=== PATIENT | male | born 1975 | race Caucasian/White ===

== ENCOUNTER 2018-11-03 11:18 | Emergency (ER) | payer BC ==
[2018-11-03] MEDS ORDERED: Sodium Chloride 0.9% 1000 ML 1,000 ML IV STA (11:50)
[2018-11-03] MEDS ORDERED: Ativan 2 MG/1 ML VIAL IV ONE (11:50)
--- NOTE | 2018-11-03 12:14 | XRAY ---
Indication: Dizziness. Withdrawal from medication. Comparison: April 16, 2014. Portable chest again demonstrates normal heart, lungs, and bony thorax.
[2018-11-03 12:21] LABS: BASOPHIL % 0.2 % (0.0-0.4); Basophil (Absolute #) 0.03 (0-0.4); Eosinophil % 0.3 % (0.00-5.0); Eosinophil (Absolute #) 0.04 (0-0.5); Granulocyte Absolute (ANC) 11.07 (1.4-6.9); Granulocytes % 83.7 % (36.0-66.0); Hematocrit 42.6 % (42-50); Hemoglobin 14.6 gm/dl (12.5-18.0); Lymphocyte (Absolute #) 1.46 (1.0-4.6); Mean Cell Volume 83.2 fl (78-100); Mean Corpuscular Hemoglobin 28.5 pg (26-32); Mean Corpuscular Hgb Concent. 34.3 g/dl (32-36); Mean Platelet Volume 10.2 fl (6-9.5); Monocyte (Absolute #) 0.64 (0.0-1.3); Monocytes % 4.8 % (0.0-12.0); Platelet Count 275 K/mm3 (150-450); Red Blood Count 5.12 M/mm3 (4.1-5.6); Red Cell Distribution Width 14.3 % (11.5-14.0); White Blood Count 13.2 K/mm3 (4.0-10.5)
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
[2018-11-03 12:35] LABS: ALBUMIN 4.6 g/dL (3.5-5.0); ALKALINE PHOSPHATASE 90 U/L (38-126); ANION GAP 14.3 MEQ/L (5-15); BLOOD UREA NITROGEN 13 mg/dL (9-20); CHLORIDE 103 mmol/L (98-107); Calcium 9.7 mg/dL (8.4-10.2); Carbon Dioxide 23 mmol/L (22-30); Creatinine 1 0.73 mg/dL (0.66-1.25); Glucose 96 mg/dL (74-106); Potassium 3.8 mmol/L (3.5-5.1); SGOT/AST 29 U/L (17-59); SGPT/ALT 22 U/L (0-50); SODIUM 137 mmol/L (137-145); Total Protein 7.9 g/dL (6.3-8.2)
[2018-11-03] MEDS ORDERED: Sodium Chloride 0.9% 1000 ML 1,000 ML ONE (12:36)
[2018-11-03] MEDS ORDERED: Ativan 2 MG/1 ML VIAL ONE (12:36)
[2018-11-03 12:48] LABS: ETHYL ALCOHOL < 10 mg/dL (0-10)
[2018-11-03 13:55] VITALS: BP 142/90
[2018-11-03 14:22] LABS: Appearance CLEAR (CLEAR); Bilirubin NEGATIVE (NEGATIVE); Blood SMALL Ery/ul (0-5); Glucose NEGATIVE (NEGATIVE); Ketones SMALL (NEGATIVE); Leukocyte Esterase NEGATIVE (NEGATIVE); Nitrite NEGATIVE (NEGATIVE); Protein,Urine Dip NEGATIVE (Negative); Specific Gravity 1.005 (1.005-1.025); Urobilinogen NEGATIVE mg/dL (0-1)
[2018-11-03 14:35] VITALS: O2SAT 99
[2018-11-03 14:43] LABS: Amphetamine,Urine NEGATIVE (NEGATIVE); Barbiturate,Urine NEGATIVE (NEGATIVE); Benzodiazepine,Urine NEGATIVE (NEGATIVE); Cocaine,Urine NEGATIVE (NEGATIVE); Methadone,Urine NEGATIVE (NEGATIVE); Opiate,Urine NEGATIVE (NEGATIVE); PCP,Urine NEGATIVE (NEGATIVE); THC,Urine NEGATIVE (NEGATIVE)
[2018-11-03 15:04] VITALS: PULSE 70
== END 2018-11-03 15:09 | disposition home or self-care (01) ==
LOC: ED 11:18
DX: F13.24 Sedative, hypnotic or anxiolytic dependence with sedative, hypnotic or anxiolytic-induced mood disorder (principal)
CPT/HCPCS: 36415; 71045; 80053; 80307; 81001; 84484; 85025; 93005; 93041; 96360; 96374; 99284; J2060; G0480

== ENCOUNTER 2019-04-15 16:39 | Emergency (ER) | payer BC ==
[2019-04-15] MEDS ORDERED: TORAdol 30 mg Injection IV ONE (16:55)
[2019-04-15] MEDS ORDERED: Sodium Chloride 0.9% 1000 ML 1,000 ML IV STA ×2 (16:55→17:18)
[2019-04-15 17:17] LABS: Absolute Neutrophil Ct (ANC) 8.89 (1.4-6.9); BASOPHIL % 0.5 % (0.0-0.4); Basophil (Absolute #) 0.06 (0-0.4); Eosinophil % 1.3 % (0.00-5.0); Eosinophil (Absolute #) 0.17 (0-0.5); Hematocrit 44.3 % (42-50); Hemoglobin 14.7 gm/dl (12.5-18.0); Lymphocyte (Absolute #) 2.64 (1.0-4.6); Lymphocytes % 20.6 % (24.0-44.0); Mean Cell Volume 80.3 fl (78-100); Mean Corpuscular Hemoglobin 26.6 pg (26-32); Mean Corpuscular Hgb Concent. 33.2 g/dl (32-36); Mean Platelet Volume 9.6 fl (7.5-11.0); Monocyte (Absolute #) 1.05 (0.0-1.3); Monocytes % 8.2 % (0.0-12.0); Neutrophil % 69.4 % (36.0-66.0); Platelet Count 288 K/mm3 (150-450); Red Blood Count 5.52 M/mm3 (4.1-5.6); Red Cell Distribution Width 14.3 % (11.5-14.0); White Blood Count 12.8 K/mm3 (4.0-10.5)
--- NOTE | 2019-04-15 17:27 | ERPHSYRPT ---
- History of Present Illness Source: patient Exam Limitations: no limitations Patient Subjective Stated Complaint: pt here for a lump to right side of neck for 60 days he states is getting bigger, and congestion for 4 days, vomiting for 2 days. vomited more than 10 times, with possible blood in emisis. Triage Nursing Assessment: pt alert, moaning, walked in, resp easy, skin w/d/p. moves all ext well, abs soft Timing/Duration: gradual onset Severity: moderate ENT Location: throat (specifically right anterior neck) Prearrival Treatment: no prearrival treatment Modifying Factors: Improves With: nothing Associated Symptoms: malaise, neck pain, swollen glands, No ear pain (R), No ear pain (L), No cough, No fever, No chills, No change in hearing, No dizziness , No drooling, No ear drainage, No facial pain/swelling, No headache, No hearing loss, No jaw pain, No motion sickness, No nasal congestion/drainage, No epistaxis, No nasal foreign body, No poor fluid intake, No poor solids intake, No ringing of ears, No sinus infection, No sore throat, No tooth pain, No difficulty swallowing, No voice change Hx Tetanus, Diphtheria Vaccination/Date Given: Yes Hx Influenza Vaccination/Date Given: No Hx Pneumococcal Vaccination/Date Given: No Immunizations Up to Date: Yes <VELIA POLLARD - Last Filed: 04/15/19 18:50> <BLAS CHU - Last Filed: 04/15/19 21:23> - History of Present Illness Time Seen by Provider: 04/15/19 16:45 Physician History: Patient has had swelling discomfort to his right anterior neck over the past 2 weeks at least with worsening symptoms with the past 4 days. Patient states has had some vomiting today and possibly some blood in the vomit. (VELIA POLLARD) Allergies/Adverse Reactions: morphine Allergy (Verified 04/15/19 16:51) Rash Home Medications: lisinopriL [Lisinopril] 20 mg PO DAILY 11/03/18 [History] Bupropion HCl [Wellbutrin Xl] 300 mg DAILY 04/15/19 [History] Gabapentin 400 mg TID 04/15/19 [History] Hydroxyzine HCl 25 mg [Atarax 25 mg] 25 mg DAILY 04/15/19 [History] Quetiapine Fumarate [Seroquel] 100 mg DAILY 04/15/19 [History] - Review of Systems Constitutional: Malaise, No Fever, No Chills Eyes: No Symptoms, No Eye Pain, No Eye Redness Ears, Nose, & Throat: No Symptoms, Nose Congestion, No Ear Pain, No Throat Pain , No Throat Swelling, No Painful Swallowing Respiratory: No Cough, No Dyspnea Cardiac: No Chest Pain, No Edema, No Syncope Abdominal/Gastrointestinal: Vomiting, Hematemesis, No Abdominal Pain, No Nausea , No Diarrhea, No Hematochezia, No Melena Genitourinary Symptoms: No Dysuria, No Hematuria, No Flank Pain Musculoskeletal: Neck Pain (Right anterior side), No Back Pain, No Deformity, No Joint Pain Skin: No Rash Neurological: No Dizziness, No Focal Weakness, No Sensory Changes Psychological: No Symptoms, No Anxiety Endocrine: No Symptoms, No Polyuria Hematologic/Lymphatic: No Easy Bleeding, No Easy Bruising All Other Systems: Reviewed and Negative <VELIA POLLARD - Last Filed: 04/15/19 18:50> - Past Medical History Pertinent Past Medical History: Yes Neurological History: No Pertinent History ENT History: No Pertinent History Cardiac History: Hypertension Respiratory History: No Pertinent History Endocrine Medical History: No Pertinent History Musculoskeletal History: Degenerative Disk Disease, Other GI Medical History: No Pertinent History History: No Pertinent History Psycho-Social History: Anxiety, Depression Male Reproductive Disorders: No Pertinent History Other Medical History: BACK PAIN - Past Surgical History Past Surgical History: Yes Neuro Surgical History: No Pertinent History Cardiac: No Pertinent History Respiratory: No Pertinent History Gastrointestinal: No Pertinent History Genitourinary: No Pertinent History Musculoskeletal: No Pertinent History Male Surgical History: Vasectomy Other Surgical History: . - Social History Smoking Status: Current every day smoker How long have you smoked: 5 yrs Exposure to second hand smoke: No Drug Use: none Patient Lives Alone: No <VELIA POLLARD - Last Filed: 04/15/19 18:50> - Physical Exam General Appearance: no apparent distress, alert Eye Exam: bilateral eye: normal inspection, PERRL, EOMI Ear Exam: bilateral ear: auricle normal, canal normal, TM normal Nasal Exam: normal inspection, No active bleeding, No discharge, No dried blood , No sinus tenderness Throat Exam: normal, pharynx normal, moist mucus membranes, No mandibular swelling, No maxillary swelling, No pharynx swelling, No pharynx tenderness, No tongue swollen, No tonsillar exudate, No tonsillar swelling, No trismus, No uvula swelling Neck Exam: normal inspection, supple, full range of motion, trachea midline, lymphadenopathy (R), No lymphadenopathy (L), No stiff neck, No tender lateral Cardiovascular/Respiratory Exam: chest non-tender, normal breath sounds, regular rate/rhythm, heart sounds normal, no JVD, no respiratory distress Abdominal Exam: non-tender, soft Neurologic Exam: alert, oriented x 3, cooperative, wearing apparel assembler II-XII nml as tested, normal mood/affect, sensation nml, No motor deficits Skin Exam: normal color, warm, dry, No petechiae, No jaundice SpO2 Interpretation: normal SpO2: 97 O2 Delivery: Room Air <VELIA POLLARD - Last Filed: 04/15/19 18:50> - Nursing Vital Signs Nursing Vital Signs: Initial Vital Signs Temperature 98.2 F 04/15/19 16:43 Pulse Rate 124 H 04/15/19 16:43 Respiratory Rate 20 04/15/19 16:43 Blood Pressure 132/86 04/15/19 16:43 O2 Sat by Pulse Oximetry 97 04/15/19 16:43 Pain Scale Pain Intensity 0 - Course Nursing assessment & vital signs reviewed: Yes - CT Exams Soft Tissue Neck CT Interpretation: Other (Per radiologist interpretation: No parables. Mild left and minimal right maxillary sinus mucosal thickening. Otherwise normal CT of the neck with no masses, lymphadenopathy or any other signs of infectious or abscess formation.) <VELIA POLLARD - Last Filed: 04/15/19 18:50> Ordered Tests: Active Orders 24 hr Category Date Time Status IV Insertion STAT Care 04/15/19 16:55 Active NECK WITH CONTRAST [CT] Stat Exams 04/15/19 16:57 Taken CBC W DIFF Stat Lab 04/15/19 17:13 Completed CMP Stat Lab 04/15/19 17:13 Completed LIPASE Stat Lab 04/15/19 21:02 Ordered Lactic Acid Stat Lab 04/15/19 16:55 Completed Lactic Acid Stat Lab 04/15/19 19:14 Received Lactic Acid Stat Lab 04/15/19 20:45 Completed Medication Summary Discontinued Medications Generic Name Dose Route Start Last Admin Trade Name Dacia PRN Reason Stop Dose Admin Al Hydrox/Mg Hydrox/Simethicone 30 ml 04/15/19 18:35 04/15/19 18:47 Maalox Es 30 Ml Unit Dose PO 04/15/19 18:36 30 ml STAT ONE Administration Al Hydrox/Mg Hydrox/Simethicone Confirm 04/15/19 18:47 Maalox Es 30 Ml Unit Dose Administered 04/15/19 18:48 Dose 30 ml .ROUTE .STK-MED ONE Amoxicillin/Clavulanate Potassium 875 mg 04/15/19 21:00 04/15/19 21:13 Augmentin 875-125 Tablet PO 04/15/19 21:01 875 mg STAT ONE Administration Amoxicillin/Clavulanate Potassium Confirm 04/15/19 21:12 Augmentin 875-125 Tablet Administered 04/15/19 21:13 Dose 875 mg .ROUTE .STK-MED ONE Sodium Chloride 1,000 mls @ 999 mls/hr 04/15/19 16:55 04/15/19 18:49 Sodium Chloride 0.9% 1000 Ml IV 04/15/19 17:55 Infused .Q1H1M STA Infusion Sodium Chloride 1,000 mls @ 999 mls/hr 04/15/19 17:18 04/15/19 18:49 Sodium Chloride 0.9% 1000 Ml IV 04/15/19 18:18 Infused .Q1H1M STA Infusion Sodium Chloride Confirm 04/15/19 17:42 Sodium Chloride 0.9% 1000 Ml Administered 04/15/19 17:43 Dose 2,000 mls @ ud .ROUTE .STK-MED ONE Ketorolac Tromethamine 30 mg 04/15/19 16:55 04/15/19 17:43 Toradol 30 Mg Injection IV 04/15/19 16:56 30 mg STAT ONE Administration Ketorolac Tromethamine Confirm 04/15/19 17:42 Toradol 30 Mg Injection Administered 04/15/19 17:43 Dose 30 mg .ROUTE .STK-MED ONE Lab/Rad Data: Laboratory Result Diagrams 04/15/19 17:13 04/15/19 17:13 Laboratory Results 02/04/15/19 04/15/19 Range/Units Unknown 21:02 20:45 WBC (4.0-10.5) K/mm3 RBC (4.1-5.6) M/mm3 Hgb (12.5-18.0) gm/dl Hct (42-50) % MCV (78-100) fl MCH (26-32) pg MCHC (32-36) g/dl RDW (11.5-14.0) % Plt Count (150-450) K/mm3 MPV (7.5-11.0) fl Gran % (36.0-66.0) % Eos # (Auto) (0-0.5) Absolute Lymphs (auto) (1.0-4.6) Absolute Monos (auto) (0.0-1.3) Lymphocytes % (24.0-44.0) % Monocytes % (0.0-12.0) % Eosinophils % (0.00-5.0) % Basophils % (0.0-0.4) % Absolute Granulocytes (1.4-6.9) Basophils # (0-0.4) Sodium (137-145) mmol/L Potassium (3.5-5.1) mmol/L Chloride (98-107) mmol/L Carbon Dioxide (22-30) mmol/L Anion Gap (5-15) MEQ/L BUN (9-20) mg/dL Creatinine (0.66-1.25) mg/dL Estimated GFR ML/MIN Glucose (74-106) mg/dL Lactic Acid 2.0 (0.4-2.0) Calcium (8.4-10.2) mg/dL Total Bilirubin (0.2-1.3) mg/dL AST (17-59) U/L ALT (0-50) U/L Alkaline Phosphatase (38-126) U/L Serum Total Protein (6.3-8.2) g/dL Albumin (3.5-5.0) g/dL Lipase 75 (23-300) U/L Group A Strep Antibody NEGATIVE (NEGATIVE) 04/15/19 04/15/19 04/15/19 Range/Units 17:13 17:13 16:55 WBC 12.8 H (4.0-10.5) K/mm3 RBC 5.52 (4.1-5.6) M/mm3 Hgb 14.7 (12.5-18.0) gm/dl Hct 44.3 (42-50) % MCV 80.3 (78-100) fl MCH 26.6 (26-32) pg MCHC 33.2 (32-36) g/dl RDW 14.3 H (11.5-14.0) % Plt Count 288 (150-450) K/mm3 MPV 9.6 (7.5-11.0) fl Gran % 69.4 H (36.0-66.0) % Eos # (Auto) 0.17 (0-0.5) Absolute Lymphs (auto) 2.64 (1.0-4.6) Absolute Monos (auto) 1.05 (0.0-1.3) Lymphocytes % 20.6 L (24.0-44.0) % Monocytes % 8.2 (0.0-12.0) % Eosinophils % 1.3 (0.00-5.0) % Basophils % 0.5 (0.0-0.4) % Absolute Granulocytes 8.89 H (1.4-6.9) Basophils # 0.06 (0-0.4) Sodium 138 (137-145) mmol/L Potassium 3.7 (3.5-5.1) mmol/L Chloride 104 (98-107) mmol/L Carbon Dioxide 20 L (22-30) mmol/L Anion Gap 17.4 H (5-15) MEQ/L BUN 16 (9-20) mg/dL Creatinine 0.99 (0.66-1.25) mg/dL Estimated GFR > 60.0 ML/MIN Glucose 125 H (74-106) mg/dL Lactic Acid 3.6 H (0.4-2.0) Calcium 9.4 (8.4-10.2) mg/dL Total Bilirubin 0.60 (0.2-1.3) mg/dL AST 40 (17-59) U/L ALT 29 (0-50) U/L Alkaline Phosphatase 91 (38-126) U/L Serum Total Protein 7.9 (6.3-8.2) g/dL Albumin 4.6 (3.5-5.0) g/dL Lipase (23-300) U/L Group A Strep Antibody (NEGATIVE) - Progress Progress: improved Counseled pt/family regarding: lab results, diagnosis, need for follow-up, rad results <VELIA POLLARD - Last Filed: 04/15/19 18:50> - Progress Progress: improved, re-examined Counseled pt/family regarding: lab results, diagnosis, need for follow-up, rad results <BLAS CHU - Last Filed: 04/15/19 21:23> - Progress Progress Note: 04/15/19 18:50 Patient is feeling better after IV hydration and medication. I reviewed with him his elevated lactic acid, reason we are hydrating and repeating lactic acid test as well as a CT of the soft tissues neck did not show any reason why he is feeling the mass in his neck at this time. 04/15/19 18:55 Discussed the patient with Dr Chu, [facility] emergency department attending. Care was transferred to Dr. Chu. Final disposition will be performed by Dr. Chu after evaluation of the patient, labs and response to therapy. (VELIA POLLARD) Patient is checked out to me at end of Dr. Pollard shift with pending repeat lactate. Patient is given 2 boluses of IV fluids, on my evaluation patient is feeling much better breath CT showed some maxillary sinus thickening could be sinusitis, I will start her on Augmentin. Repeat lactate is 2. Did not have any vomiting while in the ER. Abdominal exam is benign with no tenderness at all. I do not think he needs any abdominal imaging. His elevated lactate is probably secondary to dehydration from multiple episodes of vomiting. I will give him Zofran to go home. Discussed symptoms/signs of worsening needing return to ER which he seems understanding. Recommended outpatient follow-up. 04/15/19 21:05 (BLAS CHU) - Departure Departure Disposition: Extended Care Facility <VELIA POLLARD - Last Filed: 04/15/19 18:50> - Departure Departure Disposition: Home Critical Care Time: No <BLAS CHU - Last Filed: 04/15/19 21:23> - Departure Clinical Impression: Mass in neck, Nausea and vomiting in adult, Lactic acidosis Condition: Good Referrals: ELO SAUCEDA [Primary Care Provider] - Follow Up with PCP/3 days Instructions: Nausea and Vomiting, Adult (DC), Cervical Muscle Strain (DC), Generalized Neck Pain (DC) Additional Instructions: Drink plenty of fluids. Take Tylenol as needed. Take Zofran as needed for nausea or vomiting. Follow-up with primary care for reevaluation. Return to ER for worsening vomiting or if develop abdominal pain, fever or chills etc. Prescriptions: Amox Tr/Potass Clav. 875 mg [Augmentin 875-125 Tablet] 875 mg PO BID #20 tablet Ondansetron HCl [Zofran] 4 mg PO TID PRN #10 tablet PRN Reason: Nausea/Vomiting
[2019-04-15 17:29] LABS: ALBUMIN 4.6 g/dL (3.5-5.0); ALKALINE PHOSPHATASE 91 U/L (38-126); ANION GAP 17.4 MEQ/L (5-15); BLOOD UREA NITROGEN 16 mg/dL (9-20); CHLORIDE 104 mmol/L (98-107); Calcium 9.4 mg/dL (8.4-10.2); Carbon Dioxide 20 mmol/L (22-30); Creatinine 1 0.99 mg/dL (0.66-1.25); Glucose 125 mg/dL (74-106); Potassium 3.7 mmol/L (3.5-5.1); SGOT/AST 40 U/L (17-59); SGPT/ALT 29 U/L (0-50); SODIUM 138 mmol/L (137-145); Total Protein 7.9 g/dL (6.3-8.2)
[2019-04-15] MEDS ORDERED: TORAdol 30 mg Injection ONE (17:42)
[2019-04-15] MEDS ORDERED: Sodium Chloride 0.9% 1000 ML 2,000 ML ONE (17:42)
[2019-04-15] MEDS ORDERED: MAALOX ES 30 ML UNIT DOSE PO ONE (18:35)
[2019-04-15] MEDS ORDERED: MAALOX ES 30 ML UNIT DOSE ONE (18:47)
[2019-04-15] MEDS ORDERED: Augmentin 875-125 Tablet PO ONE (21:00)
[2019-04-15] MEDS ORDERED: Augmentin 875-125 Tablet ONE (21:12)
[2019-04-15 22:13] VITALS: BP 144/93; PULSE 92; O2SAT 96
--- NOTE | 2019-04-16 07:34 | XRAY ---
Indication: Right anterior neck pain 6 weeks. Vomiting. Multiple contiguous axial images obtained through the neck using 80 cc of Isovue-370 contrast. Comparison: None Parotid and submandibular glands are bilaterally symmetric. No pathologic cervical/submandibular/supraclavicular lymphadenopathy. Thyroid gland enhances homogeneously. Major arteries and veins are normal in course and caliber. Supra and infraglottic airway widely patent. Normal epiglottis. The cervical spine is intact. Mild inferior left and minimal inferior right maxillary sinus mucosal thickening. Remaining paranasal sinuses and mastoid air cells are clear. Remaining visualized soft tissues including base of the brain and lung apices are unremarkable. Impression: 1. Minimal/mild maxillary sinus disease. 2. Remaining CT neck with contrast exam is negative.
== END 2019-04-15 22:13 | disposition home or self-care (01) ==
LOC: ED 16:39
DX: R22.1 Localized swelling, mass and lump, neck (principal); R11.2 Nausea with vomiting, unspecified; E87.2 Acidosis
CPT/HCPCS: 36415; 70491; 80053; 83605; 83690; 85025; 87651; 96360; 96374; 99284; J1885; A9270-GY

== ENCOUNTER 2021-11-28 18:42 | Emergency (ER) | payer OTHER ==
[2021-11-28] MEDS ORDERED: BABY ASPIRIN 81 MG CHEW PO ONE (18:55)
[2021-11-28] MEDS ORDERED: Nitrostat 0.4 MG (ED) SL ONE ×2 (18:55→19:25)
[2021-11-28 18:58] VITALS: BP 151/112; PULSE 80; O2SAT 100
[2021-11-28] MEDS ORDERED: Sodium Chloride 0.9% 1000 ML 1,000 ML IV SCH (19:00)
[2021-11-28] MEDS ORDERED: Zofran 4 MG/2 ML VIAL ONE (19:06)
[2021-11-28] MEDS ORDERED: SUBLIMAZE 100 MCG/2 ML ONE (19:06)
[2021-11-28] MEDS ORDERED: Sodium Chloride 0.9% 1000 ML 1,000 ML ONE (19:07)
--- NOTE | 2021-11-28 19:07 | ERPHSYRPT ---
- History of Present Illness Time Seen by Provider: 11/28/21 18:44 Historian: patient Exam Limitations: no limitations Patient Subjective Stated Complaint: Pt began having medial chest pain approx 1 hour ago that radiates to the back Triage Nursing Assessment: Pt brought to the ER by his , hypertensive, rates pain as 8/10, pain in lower sternum and it radiates to the back, gave nitro and aspirin, pulses normal, skin n/w/d, denies N&V Physician History: 46 years old male with history of hypertension, tobacco abuse presented in the ER with chief complaint of left-sided chest pain sudden onset almost an hour ago while he was working, severe sharp, radiating to the back, no significant aggravating or relieving factors without palpitations or shortness of breath. Denies associated nausea vomiting. No fever chills cough or sick contact reported. Timing/Duration: hour(s) (1), constant, sudden, worse Activities at Onset: activity Quality: sharpness Location: substernal, central Chest Pain Radiation: back Severity of Pain-Max: severe Severity of Pain-Current: severe Modifying Factors: Improves With: nothing Associated Symptoms: denies symptoms Prior Chest Pain/Cardiac Workup: no prior cardiac workup Nitro Today/Relief: no nitro taken today Aspirin Treatment Today: no aspirin today Allergies/Adverse Reactions: morphine Allergy (Verified 04/15/19 16:51) Rash Home Medications: lisinopriL [Lisinopril] 20 mg PO DAILY 11/03/18 [History] Bupropion HCl [Wellbutrin Xl] 300 mg DAILY 04/15/19 [History] Gabapentin 400 mg TID 04/15/19 [History] Hydroxyzine HCl 25 mg [Atarax 25 mg] 25 mg DAILY 04/15/19 [History] Quetiapine Fumarate [Seroquel] 100 mg DAILY 04/15/19 [History] Hx Tetanus, Diphtheria Vaccination/Date Given: Yes Hx Influenza Vaccination/Date Given: No Hx Pneumococcal Vaccination/Date Given: No Travel Risk - International Travel Have you traveled outside of the country in past 3 weeks: No - Coronavirus Screening Are you exhibiting any of the following symptoms?: No - Vaccine Status Have you recieved a Covid-19 vaccination: Yes 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 - Vaccination Dates Date of 2cond Vaccination (if applicable): 2020 - Review of Systems Constitutional: No Symptoms Eyes: No Symptoms Ears, Nose, & Throat: No Symptoms Respiratory: No Symptoms Cardiac: Chest Pain Abdominal/Gastrointestinal: No Symptoms Genitourinary Symptoms: No Symptoms Musculoskeletal: No Symptoms Skin: No Symptoms Neurological: No Symptoms Psychological: No Symptoms Endocrine: No Symptoms Hematologic/Lymphatic: No Symptoms Immunological/Allergic: No Symptoms - Past Medical History Pertinent Past Medical History: Yes Neurological History: No Pertinent History ENT History: No Pertinent History Cardiac History: Hypertension Respiratory History: No Pertinent History Endocrine Medical History: No Pertinent History Musculoskeletal History: Degenerative Disk Disease, Other GI Medical History: No Pertinent History History: No Pertinent History Psycho-Social History: Anxiety, Depression Male Reproductive Disorders: No Pertinent History Other Medical History: BACK PAIN - Past Surgical History Past Surgical History: Yes Neuro Surgical History: No Pertinent History Cardiac: No Pertinent History Respiratory: No Pertinent History Gastrointestinal: No Pertinent History Genitourinary: No Pertinent History Musculoskeletal: No Pertinent History Male Surgical History: Vasectomy Other Surgical History: . - Social History Smoking Status: Current every day smoker How long have you smoked: 5 yrs Exposure to second hand smoke: Yes Drug Use: none Patient Lives Alone: No - Nursing Vital Signs Nursing Vital Signs: Initial Vital Signs Temperature 96.9 F 11/28/21 18:44 Pulse Rate 80 11/28/21 18:44 Blood Pressure 151/112 11/28/21 18:44 O2 Sat by Pulse Oximetry 100 11/28/21 18:44 Pain Scale Pain Intensity 8 - Physical Exam General Appearance: no apparent distress, alert Eye Exam: PERRL/EOMI Ears, Nose, Throat Exam: normal ENT inspection Neck Exam: normal inspection, non-tender, supple, full range of motion Respiratory Exam: normal breath sounds, lungs clear Cardiovascular Exam: regular rate/rhythm, normal heart sounds Gastrointestinal/Abdomen Exam: soft, No tenderness Back Exam: normal inspection, normal range of motion Extremity Exam: normal inspection, normal range of motion Neurologic Exam: alert, oriented x 3, cooperative Skin Exam: normal color SpO2 Interpretation: normal SpO2: 100 O2 Delivery: Room Air - Course EKG Interpreted by Me: RATE, Sinus Rhythm, NORMAL AXIS, NORMAL INTERVALS, Other (Mild ST elevation inferior leads) Ordered Tests: Active Orders 24 hr Category Date Time Status Director Public Service STAT Care 11/28/21 18:56 Active EKG-ER Only STAT Care 11/28/21 18:55 Active IV Insertion STAT Care 11/28/21 18:55 Active IV Insertion-2nd Peripheral STAT Care 11/28/21 19:04 Active Oxygen-ED Only Nasal Cannula 2 lpm Care 11/28/21 18:55 Active CHEST 1 VIEW (PORTABLE) Stat Exams 11/28/21 19:05 Taken CBC W DIFF Stat Lab 11/28/21 18:55 Ordered CK-Creatinine Phosphokinase Stat Lab 11/28/21 18:55 Ordered CMP Stat Lab 11/28/21 18:55 Ordered NT PRO BNP Stat Lab 11/28/21 18:55 Ordered TROPONIN Q4H Lab 11/28/21 19:00 Ordered TROPONIN Q4H Lab 11/28/21 23:00 Ordered TROPONIN Q4H Lab 11/29/21 03:00 Ordered Medication Summary Generic Name Dose Route Start Last Admin Trade Name Freq PRN Reason Stop Dose Admin Sodium Chloride 1,000 mls @ 100 mls/hr 11/28/21 19:00 Sodium Chloride 0.9% 1000 Ml IV 12/28/21 18:59 .Q10H SARAHI Discontinued Medications Generic Name Dose Route Start Last Admin Trade Name Freq PRN Reason Stop Dose Admin Aspirin 324 mg 11/28/21 18:55 Aspirin 81 Mg Tab.Chew PO 11/28/21 18:56 STAT ONE Fentanyl Citrate Confirm 11/28/21 19:06 Fentanyl Citrate 100 Mcg/2 Ml* Vial Administered 11/28/21 19:07 Dose 100 mcg .ROUTE .STK-MED ONE Nitroglycerin 0.4 mg 11/28/21 18:55 Nitroglycerin 0.4 Mg (Ed) 0.4 Mg Tab.Subl SL 11/28/21 18:56 STAT ONE Ondansetron HCl Confirm 11/28/21 19:06 Ondansetron Hcl 4 Mg/2 Ml Vial Administered 11/28/21 19:07 Dose 4 mg .ROUTE .STK-MED ONE - Progress Progress: re-examined Air Movement: good Progress Note: 11/28/21 19:07 46 years old is evaluated for chest pain. Initial EKG showed some questionable elevation in inferior leads. Given aspirin and nitro and repeated EKG with minimal improvement. Patient still having 8/10 intensity pain. Given fentanyl. Discussed with Dr. London at [facility] ER who has discussed with Dr. Retana cardiology on-call, recommended transfer to [facility]. Also recommended holding off on Lovenox/heparin for now as it seems questionable elevation versus early repolarization. Plan discussed with patient and family who understand and agree with it. Discussed with .: Other Will see patient in: ED Counseled pt/family regarding: lab results, diagnosis - Departure Clinical Impression: Precordial chest pain Condition: Stable Critical Care Time: No Referrals: ELO SAUCEDA [Primary Care Provider] - Follow up/PCP as directed
[2021-11-28] MEDS ORDERED: SUBLIMAZE 100 MCG/2 ML IV ONE (19:14)
[2021-11-28 19:16] LABS: Absolute Neutrophil Ct (ANC) 10.23 x10^3/uL (1.4-6.9); Eosinophil (Absolute #) 0.57 x10^3/uL (0-0.5); Hematocrit 44.7 % (42-50); Hemoglobin 14.3 g/dL (12.5-18.0); Lymphocyte (Absolute #) 2.76 x10^3/uL (1.0-4.6); Lymphocytes % 19.1 % (24.0-44.0); Mean Cell Volume 84.5 fL (78-100); Mean Platelet Volume 10.1 fL (7.5-11.0); Monocyte (Absolute #) 0.71 x10^3/uL (0.0-1.3); Monocytes % 4.9 % (0.0-12.0); Neutrophil % 70.9 % (36.0-66.0); Platelet Count 297 x10^3/uL (150-450); Red Blood Count 5.29 x10^6/uL (4.1-5.6); Red Cell Distribution Width 13.6 % (11.5-14.0); White Blood Count 14.4 x10^3/uL (4.0-10.5)
[2021-11-28] MEDS ORDERED: Zofran 4 MG/2 ML VIAL IV ONE (19:24)
[2021-11-28] MEDS ORDERED: BABY ASPIRIN 81 MG CHEW ONE (19:25)
[2021-11-28 19:37] LABS: NT PRO BNP 69.3 pg/mL (0-450)
[2021-11-28 19:54] LABS: ALBUMIN 4.2 g/dL (3.5-5.0); ALKALINE PHOSPHATASE 89 U/L (38-126); ANION GAP 12.8 MEQ/L (5-15); BLOOD UREA NITROGEN 11 mg/dL (9-20); CHLORIDE 104 mmol/L (98-107); CK-Creatinine Phosphokinase 115 U/L (55-170); Carbon Dioxide 21 mmol/L (22-30); Creatinine 1 0.89 mg/dL (0.66-1.25); EST GLOMERULAR FILTRATION RATE > 60.0 ML/MIN; Glucose 86 mg/dL (74-106); Potassium 4.2 mmol/L (3.5-5.1); SGOT/AST 41 U/L (17-59); SGPT/ALT 28 U/L (0-50); SODIUM 134 mmol/L (137-145); Total Protein 7.2 g/dL (6.3-8.2)
--- NOTE | 2021-11-29 08:30 | XRAY ---
Indication: Chest pain. Comparison: November 03, 2018 Portable chest again demonstrates normal heart, lungs, and bony thorax.
== END 2021-11-28 19:18 | disposition short-term general hospital (02) ==
LOC: ED 18:42
DX: R07.2 Precordial pain (principal); R94.31 Abnormal electrocardiogram [ECG] [EKG]; I10 Essential (primary) hypertension; Z72.0 Tobacco use; Z79.899 Other long term (current) drug therapy
CPT/HCPCS: 36000; 36415; 71045; 80053; 82550; 83880; 84484; 85025; 93005; 93041; 96374; 96375; 99285; J2405; J3010; A9270-GY

== ENCOUNTER 2022-03-21 06:10 | Day surgery (SDC) | payer OTHER ==
[2022-03-21] MEDS ORDERED: Lactated Ringers 1,000 ML IV SCH (07:00)
[2022-03-21] MEDS ORDERED: Xylocaine-Mpf 2% 5 Ml Vial ONE (07:36)
[2022-03-21] MEDS ORDERED: DIPRIVAN 200 MG/20 ML IV ONE ×2 (07:36→08:00)
[2022-03-21] MEDS ORDERED: Lactated Ringers 1,000 ML IV ONE (08:08)
[2022-03-21 08:58] VITALS: PULSE 62
--- NOTE | 2022-03-21 09:00 | OP ---
SURGERY DATE/TIME: 03/21/2022 0748 PREOPERATIVE DIAGNOSIS: Screening exam. POSTOPERATIVE DIAGNOSIS: Small polyps in the transverse colon. PROCEDURE: Colonoscopy with cold forceps biopsy. SURGEON: Dr. Graff. ANESTHESIA: MAC. Medications given by anesthesia department. HISTORY: The patient is a 46-year-old white male patient presenting now for screening colonoscopy. He was appraised of the risks of the procedure including the risk of perforation, phlebitis, untoward reaction to medication, bleeding and missed lesions. The patient verbalized his understanding and desired to have the procedure performed. DESCRIPTION OF PROCEDURE: The patient was given the medications by the anesthesia department. He had continuous pulse oximetry, ECG monitoring and intermittent blood pressure monitoring during the examination. He was placed in the left lateral decubitus position. A digital rectal examination was performed and revealed normal anal sphincter tone, no masses and a normal prostate. The flexible Olympus pediatric colonoscope was used to intubate the rectum. A view of the colon was developed sequentially to the cecum. Upon insertion and withdrawal, there was noted a small polyp in the transverse colon. Using cold forceps biopsy multiple passes to eliminate the polyp. There was also noted another polyp in the proximal descending colon which was also biopsied using cold biopsy technique. No other mucosal lesions being encountered the scope was removed from the patient who tolerated the procedure well and was sent back to OP recovery in good condition. The prep was noted to be fair to good.
[2022-03-21 09:13] VITALS: BP 173/88; O2SAT 97
== END 2022-03-21 09:20 | disposition home or self-care (01) ==
LOC: SDC 06:10
PROVIDERS: ATTEND Family Medicine
DX: Z12.11 Encounter for screening for malignant neoplasm of colon (principal); D12.4 Benign neoplasm of descending colon; D12.3 Benign neoplasm of transverse colon
CPT/HCPCS: J2704

== ENCOUNTER 2022-10-29 07:25 | Emergency (ER) | payer BC ==
[2022-10-29] MEDS ORDERED: BABY ASPIRIN 81 MG CHEW PO ONE (07:54)
--- NOTE | 2022-10-29 07:54 | ERPHSYRPT ---
- History of Present Illness Time Seen by Provider: 10/29/22 07:54 Historian: patient Exam Limitations: no limitations Patient Subjective Stated Complaint: PT states "I had chest pain last night and today I feel a bit out of it, I feel like my blood pressure is up. I am not sure if I had another panic attack or not." Triage Nursing Assessment: PT presented alert and oriented X 3, skin pwd. Pt ambulates with an upright steady gait, able to speak in clear full sentences. PT resting comfortably on the bed. Physician History: This is an overweight 47-year-old white male patient of Dr. Graff who has no documented history of cardiac disease but presents with substernal central nonradiating chest pain that began yesterday and resolved by the evening. Yesterday, the patient took a single nitroglycerin and was feeling better. Patient woke up this morning, feeling off. He was somewhat confused. His chest pain has resolved. Patient has a history of hypertension, panic attacks as well as a history of opiate dependence in the past. He is taking buprenorphine. Patient has not had any nausea vomiting or diarrhea. He has no abdominal pain. He has no shortness of breath. Patient did not take his morning medication. Timing/Duration: yesterday Activities at Onset: none Quality: pressure, tightness Location: substernal, central Chest Pain Radiation: no radiation Severity of Pain-Max: mild Severity of Pain-Current: none Modifying Factors: Improves With: nitroglycerin (Took a single nitroglycerin yesterday) Associated Symptoms: denies symptoms Nitro Today/Relief: no nitro taken today Aspirin Treatment Today: no aspirin today Allergies/Adverse Reactions: morphine Allergy (Verified 03/17/22 07:36) Rash Home Medications: lisinopriL [Lisinopril] 10 mg PO DAILY 11/03/18 [History] Gabapentin 400 mg QID 04/15/19 [History] Aspirin EC 81 mg [Ecotrin 81 mg] 81 mg PO DAILY 03/17/22 [History] Buprenorphine HCl/Naloxone HCl [Buprenorphine-Nalox 8-2 mg Tab] 1 tab PO BID 0 03/17/22 [History] Escitalopram Oxalate [Lexapro] 10 mg PO DAILY 03/17/22 [History] Hx Tetanus, Diphtheria Vaccination/Date Given: Yes Hx Influenza Vaccination/Date Given: No Hx Pneumococcal Vaccination/Date Given: No Immunizations Up to Date: No Travel Risk - International Travel Have you traveled outside of the country in past 3 weeks: No - Coronavirus Screening Are you exhibiting any of the following symptoms?: No Close contact with a COVID-19 positive Pt in past 14-21 Days: No - Vaccine Status Have you recieved a Covid-19 vaccination: Yes Dispatcher Service: Moderna - Vaccination Dates Date of 2cond Vaccination (if applicable): 2020 - Review of Systems Constitutional: No Symptoms Eyes: No Symptoms Ears, Nose, & Throat: No Symptoms Respiratory: No Symptoms Cardiac: Chest Pain (Yesterday. None today) Abdominal/Gastrointestinal: No Symptoms Genitourinary Symptoms: No Symptoms Musculoskeletal: No Symptoms Skin: No Symptoms Neurological: No Symptoms Psychological: No Symptoms Endocrine: No Symptoms Hematologic/Lymphatic: No Symptoms Immunological/Allergic: No Symptoms All Other Systems: Reviewed and Negative - Past Medical History Pertinent Past Medical History: Yes Neurological History: No Pertinent History ENT History: No Pertinent History Cardiac History: Hypertension Respiratory History: No Pertinent History Endocrine Medical History: No Pertinent History Musculoskeletal History: Degenerative Disk Disease, Other GI Medical History: No Pertinent History History: No Pertinent History Psycho-Social History: Anxiety, Depression Male Reproductive Disorders: No Pertinent History Other Medical History: BACK PAIN - Past Surgical History Past Surgical History: Yes Neuro Surgical History: No Pertinent History Cardiac: No Pertinent History Respiratory: No Pertinent History Gastrointestinal: No Pertinent History Genitourinary: No Pertinent History Musculoskeletal: No Pertinent History Male Surgical History: Vasectomy Other Surgical History: . - Social History Smoking Status: Current every day smoker How long have you smoked: 10 YEARS Exposure to second hand smoke: Yes Drug Use: other Patient Lives Alone: No - Nursing Vital Signs Nursing Vital Signs: Initial Vital Signs Temperature 97.5 F 10/29/22 07:25 Pulse Rate 65 10/29/22 07:25 Respiratory Rate 20 10/29/22 07:25 Blood Pressure 179/94 10/29/22 07:25 O2 Sat by Pulse Oximetry 99 10/29/22 07:25 Pain Scale Pain Intensity 0 - Physical Exam General Appearance: no apparent distress, alert, anxiety, obese Eye Exam: PERRL/EOMI, eyes nml inspection Ears, Nose, Throat Exam: normal ENT inspection, moist mucous membranes Neck Exam: normal inspection, non-tender, supple, full range of motion Respiratory Exam: normal breath sounds, lungs clear, airway intact, No chest tenderness, No respiratory distress Cardiovascular Exam: regular rate/rhythm, normal heart sounds, normal peripheral pulses Gastrointestinal/Abdomen Exam: soft, normal bowel sounds, No tenderness Rectal Exam: not done Back Exam: normal inspection, normal range of motion, No CVA tenderness, No vertebral tenderness Extremity Exam: normal inspection, normal range of motion, pelvis stable Neurologic Exam: alert, oriented x 3, cooperative, relief cook II-XII nml as tested, normal mood/affect, nml cerebellar function, nml station & gait, sensation nml Skin Exam: normal color, warm, dry Lymphatic Exam: No adenopathy SpO2 Interpretation: normal SpO2: 99 O2 Delivery: Room Air - Course Nursing assessment & vital signs reviewed: Yes EKG Interpreted by Me: RATE (65), Sinus Rhythm, NORMAL AXIS, NORMAL INTERVALS, NORMAL QRS, NORMAL ST-T, Other (No acute ischemic changes on today's twelve-lead EKG.) Ordered Tests: Active Orders 24 hr Category Date Time Status EKG-ER Only STAT Care 10/29/22 07:54 Active IV Insertion STAT Care 10/29/22 07:54 Active CHEST 1 VIEW (PORTABLE) Stat Exams 10/29/22 07:54 Completed HEAD WITHOUT CONTRAST [CT] Stat Exams 10/29/22 08:10 Completed CBC W DIFF Stat Lab 10/29/22 07:54 Completed CMP Stat Lab 10/29/22 08:10 Completed D-DIMER QUANTITATIVE Stat Lab 10/29/22 08:10 Completed TROPONIN Q4H Lab 10/29/22 08:10 Completed TROPONIN Q4H Lab 10/29/22 12:00 Ordered TROPONIN Q4H Lab 10/29/22 16:00 Ordered Medication Summary Discontinued Medications Generic Name Dose Route Start Last Admin Trade Name Freq PRN Reason Stop Dose Admin Aspirin 324 mg 10/29/22 07:54 10/29/22 07:58 Aspirin 81 Mg Tab.Chew PO 10/29/22 07:55 324 mg STAT ONE Administration Aspirin Confirm 10/29/22 08:00 Aspirin 81 Mg Tab.Chew Administered 10/29/22 08:01 Dose 324 mg .ROUTE .STK-MED ONE Lab/Rad Data: Laboratory Result Diagrams 10/29/22 07:54 10/29/22 08:10 Laboratory Results 10/29/22 10/29/2210/29/23 Range/Units 08:10 08:10 08:10 WBC (4.0-10.5) x10^3/uL RBC (4.1-5.6) x10^6/uL Hgb (12.5-18.0) g/dL Hct (42-50) % MCV (78-100) fL MCH (26-32) pg MCHC (32-36) g/dL RDW (11.5-14.0) % Plt Count (150-450) x10^3/uL MPV (7.5-11.0) fL Gran % (36.0-66.0) % Immature Gran % (Auto) (0.00-0.4) % Nucleat RBC Rel Count (0.00-0.1) % Eos # (Auto) (0-0.5) x10^3/uL Immature Gran # (Auto) (0.00-0.03) x10^3u/L Absolute Lymphs (auto) (1.0-4.6) x10^3/uL Absolute Monos (auto) (0.0-1.3) x10^3/uL Absolute Nucleated RBC (0.00-0.01) x10^3u/L Lymphocytes % (24.0-44.0) % Monocytes % (0.0-12.0) % Eosinophils % (0.00-5.0) % Basophils % (0.0-0.4) % Absolute Granulocytes (1.4-6.9) x10^3/uL Basophils # (0-0.4) x10^3/uL D-Dimer 0.26 (0.0-0.50) mg/L Sodium 138 (137-145) mmol/L Potassium 3.8 (3.5-5.1) mmol/L Chloride 108 H (98-107) mmol/L Carbon Dioxide 24 (22-30) mmol/L Anion Gap 9.9 (5-15) MEQ/L BUN 18 (9-20) mg/dL Creatinine 0.80 (0.66-1.25) mg/dL Estimated GFR > 60.0 ML/MIN Glucose 160 H (74-106) mg/dL Calcium 8.4 (8.4-10.2) mg/dL Total Bilirubin 0.30 (0.2-1.3) mg/dL AST 26 (17-59) U/L ALT 22 (0-50) U/L Alkaline Phosphatase 78 (38-126) U/L Troponin I < 0.012 (0.000-0.034) ng/mL Serum Total Protein 6.5 (6.3-8.2) g/dL Albumin 3.9 (3.5-5.0) g/dL 10/29/22 Range/Units 07:54 WBC 8.5 (4.0-10.5) x10^3/uL RBC 5.05 (4.1-5.6) x10^6/uL Hgb 13.7 (12.5-18.0) g/dL Hct 43.5 (42-50) % MCV 86.1 (78-100) fL MCH 27.1 (26-32) pg MCHC 31.5 L (32-36) g/dL RDW 13.8 (11.5-14.0) % Plt Count 234 (150-450) x10^3/uL MPV 10.1 (7.5-11.0) fL Gran % 68.6 H (36.0-66.0) % Immature Gran % (Auto) 0.2 (0.00-0.4) % Nucleat RBC Rel Count 0.0 (0.00-0.1) % Eos # (Auto) 0.27 (0-0.5) x10^3/uL Immature Gran # (Auto) 0.02 (0.00-0.03) x10^3u/L Absolute Lymphs (auto) 1.81 (1.0-4.6) x10^3/uL Absolute Monos (auto) 0.48 (0.0-1.3) x10^3/uL Absolute Nucleated RBC 0.00 (0.00-0.01) x10^3u/L Lymphocytes % 21.4 L (24.0-44.0) % Monocytes % 5.7 (0.0-12.0) % Eosinophils % 3.2 (0.00-5.0) % Basophils % 0.9 (0.0-0.4) % Absolute Granulocytes 5.80 (1.4-6.9) x10^3/uL Basophils # 0.08 (0-0.4) x10^3/uL D-Dimer (0.0-0.50) mg/L Sodium (137-145) mmol/L Potassium (3.5-5.1) mmol/L Chloride (98-107) mmol/L Carbon Dioxide (22-30) mmol/L Anion Gap (5-15) MEQ/L BUN (9-20) mg/dL Creatinine (0.66-1.25) mg/dL Estimated GFR ML/MIN Glucose (74-106) mg/dL Calcium (8.4-10.2) mg/dL Total Bilirubin (0.2-1.3) mg/dL AST (17-59) U/L ALT (0-50) U/L Alkaline Phosphatase (38-126) U/L Troponin I (0.000-0.034) ng/mL Serum Total Protein (6.3-8.2) g/dL Albumin (3.5-5.0) g/dL - Progress Progress: improved, re-examined Air Movement: good Progress Note: 10/29/22 08:09 This patient's medical issue is 1 of moderate complexity. Level complexity in the work-up performed is based on review of the patient's past medical history, review of the patient's drug list, review the patient drug allergy list, history of present illness and physical findings on examination. The work-up in this patient includes twelve-lead EKG, placement of intravenous line, CBC, CMP, troponin level, D-dimer level, chest x-ray, and 324 mg of baby aspirin. We will follow-up on the results of the studies. I will also order a CT scan of the head since he is confused and dizzy and feels off and has a history of high blood pressure. 10/29/22 09:03 Chest x-ray was interpreted by the radiologist. There is no evidence of any acute cardiopulmonary process. CT scan of the head without contrast was interpreted by the radiologist. There is no evidence of acute intracranial abnormality. Blood Culture(s) Obtained: No Antibiotics given: No Counseled pt/family regarding: lab results, diagnosis, need for follow-up, rad results Medical Desision Making - Independent Historian Additional History obtained from: Spouse - Diagnostic Testing Diagnostic test were ordered, analyzed, and reviewed by me: Yes Radiological Interpretation: Reviewed by me, Teleradiologist Report - Risk of complications Minimal Risk: Minimal risk of morbidity - Departure Departure Disposition: Home Clinical Impression: Chest pain, Anxiety about health Condition: Stable Critical Care Time: No Referrals: ELO GRAFF [Primary Care Provider] - Follow up/PCP as directed Additional Instructions: Take your medication as prescribed. Follow-up with your prescribing provider today, to make arranges for follow-up appointment for further evaluation management.
[2022-10-29] MEDS ORDERED: BABY ASPIRIN 81 MG CHEW ONE (08:00)
[2022-10-29 08:09] LABS: BASOPHIL % 0.9 % (0.0-0.4); Basophil (Absolute #) 0.08 x10^3/uL (0-0.4); Eosinophil % 3.2 % (0.00-5.0); Eosinophil (Absolute #) 0.27 x10^3/uL (0-0.5); Hematocrit 43.5 % (42-50); Hemoglobin 13.7 g/dL (12.5-18.0); IMMATURE GRAN # 0.02 x10^3u/L (0.00-0.03); IMMATURE GRAN % 0.2 % (0.00-0.4); Lymphocyte (Absolute #) 1.81 x10^3/uL (1.0-4.6); Lymphocytes % 21.4 % (24.0-44.0); Mean Cell Volume 86.1 fL (78-100); Mean Corpuscular Hemoglobin 27.1 pg (26-32); Mean Corpuscular Hgb Concent. 31.5 g/dL (32-36); Mean Platelet Volume 10.1 fL (7.5-11.0); Monocyte (Absolute #) 0.48 x10^3/uL (0.0-1.3); Monocytes % 5.7 % (0.0-12.0); Neutrophil % 68.6 % (36.0-66.0); Platelet Count 234 x10^3/uL (150-450); Red Blood Count 5.05 x10^6/uL (4.1-5.6); Red Cell Distribution Width 13.8 % (11.5-14.0); White Blood Count 8.5 x10^3/uL (4.0-10.5)
[2022-10-29 08:28] LABS: ALBUMIN 3.9 g/dL (3.5-5.0); ALKALINE PHOSPHATASE 78 U/L (38-126); ANION GAP 9.9 MEQ/L (5-15); BLOOD UREA NITROGEN 18 mg/dL (9-20); CHLORIDE 108 mmol/L (98-107); Calcium 8.4 mg/dL (8.4-10.2); Carbon Dioxide 24 mmol/L (22-30); EST GLOMERULAR FILTRATION RATE > 60.0 ML/MIN; Glucose 160 mg/dL (74-106); Potassium 3.8 mmol/L (3.5-5.1); SGOT/AST 26 U/L (17-59); SGPT/ALT 22 U/L (0-50); SODIUM 138 mmol/L (137-145); Total Protein 6.5 g/dL (6.3-8.2)
--- NOTE | 2022-10-29 08:46 | XRAY ---
Indication: Chest pain. Comparison: November 28, 2021 Portable chest again demonstrates normal heart, lungs, and bony thorax with incidental small right hilar calcified nodes.
--- NOTE | 2022-10-29 08:48 | XRAY ---
Indication: Chest pain, dizziness, and panic attack. Multiple contiguous axial images obtained through the head without contrast. Comparison: April 16, 2014. Normal appearing brain parenchyma, ventricles, and bony calvarium. Again incompletely visualized 1.5 cm left maxillary sinus polyp/retention cyst. Remaining visualized paranasal sinuses and mastoid air cells are clear. Impression: Continued normal CT head without contrast exam. Again incidental left maxillary sinus polyp/retention cyst.
[2022-10-29 09:11] VITALS: BP 140/97; PULSE 63; RESP 20; TEMP 97.2; O2SAT 98
== END 2022-10-29 09:16 | disposition home or self-care (01) ==
LOC: ED 07:25
DX: F45.9 Somatoform disorder, unspecified (principal); R07.9 Chest pain, unspecified; I10 Essential (primary) hypertension; Z79.891 Long term (current) use of opiate analgesic; Z79.899 Other long term (current) drug therapy; Z72.0 Tobacco use
CPT/HCPCS: 36000; 36415; 70450; 71045; 80053; 84484; 85025; 85379; 93005; 99284; A9270-GY

== ENCOUNTER → 2023-09-06 | Emergency (ER) | payer BC ==
[2012-11-05 13:53] VITALS: BP 160/82
== END | disposition left against medical advice (07) ==
LOC: ED 18:33
DX: Z53.9 Procedure and treatment not carried out, unspecified reason (principal)